=== PATIENT | female | born 1975 | race Caucasian/White ===

== ENCOUNTER 2017-03-18 06:55 | Emergency (ER) | payer OTHER ==
[2017-03-18 07:03] VITALS: PULSE 75; RESP 16; TEMP 97.9
[2017-03-18] MEDS ORDERED: PENICILLIN V POTASSIUM 250 MG TAB PO STA (07:12)
[2017-03-18] MEDS ORDERED: Acetaminophen-Codeine 300-30mg TAB PO STA (07:12)
[2017-03-18] MEDS ORDERED: PENICILLIN VK 500MG STARTER 4 TAB BTL PO STA (07:12)
[2017-03-18] MEDS ORDERED: DEXAMETHASONE SOD PHOSPHATE 10 MG/ML 1 ML VIAL IM STA (07:13)
--- NOTE | 2017-03-18 07:18 | ED ---
General Adult HPI - General Chief complaint: ENT Stated complaint: facial swelling, congestion Time Seen by Provider: 03/18/17 07:00 Source: patient, RN notes reviewed, old records reviewed Mode of arrival: ambulatory Limitations: no limitations - History of Present Illness Initial comments: This is a 41-year-old female to the ER for evaluation of dental disease. Face pain, tooth pain. Patient has jaw pain. Severe. No fevers. No difficulty swallowing. Does admit to increased and worsening and smelling breath. Patient has no modifying factors at home, not currently on antibiotics - Related Data Home Medications Medication Instructions Recorded Confirmed Ibuprofen [Advil] 600 mg PO Q6HR PRN 11/05/14 06/02/16 ALPRAZolam [Xanax] 1 mg PO HS 06/02/16 06/02/16 HYDROcodone/APAP 10-325MG [[address] 1 tab PO DAILY PRN 06/02/16 06/02/16 10-325] Previous Rx's Medication Instructions Recorded Ciprofloxacin HCl [Cipro] 500 mg PO Q12HR #14 tablet 06/02/16 Phenazopyridine [Pyridium] 100 mg PO TID #6 tablet 06/02/16 HYDROcodone/APAP 5-325MG [[address] 1 tab PO Q6HR PRN #30 tab 03/18/17 5-325] Penicillin V Potassium [Pen Vee K] 500 mg PO QID #40 tablet 03/18/17 Allergies Allergy/AdvReac Type Severity Reaction Status Date / Time No Known Allergies Allergy Verified 03/18/17 07:03 Review of Systems ROS Statement: Those systems with pertinent positive or pertinent negative responses have been documented in the HPI. ROS Other: All systems not noted in ROS Statement are negative. Past Medical History Past Medical History: Asthma, GERD/Reflux Additional Past Medical History / Comment(s): anemia, murmur, asthma as child, migraines History of Any Multi-Drug Resistant Organisms: None Reported Past Surgical History: Appendectomy, Section, Tubal Ligation Past Anesthesia/Blood Transfusion Reactions: No Reported Reaction Additional Past Anesthesia/Blood Transfusion Reaction / Comment(s): pt stated aa seemed to wear off to early during sx they had to give her more Past Psychological History: No Psychological Hx Reported Smoking Status: Current every day smoker Past Alcohol Use History: None Reported Past Drug Use History: None Reported - Past Family History Father Family Medical History: Unable to Obtain Mother Family Medical History: Cancer Additional Family Medical History / Comment(s): at age 52 of ovarian cancer General Exam Limitations: no limitations General appearance: alert, in no apparent distress Head exam: Present: atraumatic, normocephalic, normal inspection Eye exam: Present: normal appearance, PERRL, EOMI. Absent: scleral icterus, conjunctival injection, periorbital swelling ENT exam: Present: normal exam, mucous membranes moist Neck exam: Present: normal inspection. Absent: tenderness, meningismus, lymphadenopathy Respiratory exam: Present: normal lung sounds bilaterally. Absent: respiratory distress, wheezes, rales, rhonchi, stridor Cardiovascular Exam: Present: regular rate, normal rhythm, normal heart sounds. Absent: systolic murmur, diastolic murmur, rubs, gallop, clicks GI/Abdominal exam: Present: soft, normal bowel sounds. Absent: distended, tenderness, guarding, rebound, rigid Extremities exam: Present: normal inspection, full ROM, normal capillary refill. Absent: tenderness, pedal edema, joint swelling, calf tenderness Back exam: Present: normal inspection Neurological exam: Present: alert, oriented X3, CN II-XII intact Psychiatric exam: Present: normal affect, normal mood Skin exam: Present: warm, dry, intact, normal color. Absent: rash Course Vital Signs 03/18/17 06:57 Temperature 97.9 F Pulse Rate 75 Respiratory 16 Rate O2 Sat by Pulse 100 Oximetry Medical Decision Making - Medical Decision Making 41 female in the ER for evaluation of dental disease. Positive dental abscess and exam adrenal abscess found. Patient can be discharged home with antibiotics and pain control Disposition Clinical Impression: Dental abscess, Dental caries Disposition: HOME SELF-CARE Condition: Good Instructions: Dental Abscess (ED) Prescriptions: HYDROcodone/APAP 5-325MG [[address] 5-325] 1 tab PO Q6HR PRN #30 tab PRN Reason: Pain Penicillin V Potassium [Pen Vee K] 500 mg PO QID #40 tablet Referrals: José Antonio Samayoa DO [Primary Care Provider] - 1-2 days
--- NOTE | 2017-03-21 04:43 | CDI ---
Documentation Clarification OP Dear Rosales CARLOS, , Please add addendum for HPI, Physical examination and MDM. Thank you, Ana. Upholstery Technician. If you have any questions please contact corporate quality assurance manager at [phone]. [facility]
== END 2017-03-18 07:40 | disposition home or self-care (01) ==
LOC: EC 06:55
DX: K04.7 Periapical abscess without sinus (principal); K02.9 Dental caries, unspecified; F17.200 Nicotine dependence, unspecified, uncomplicated; Z79.899 Other long term (current) drug therapy
CPT/HCPCS: 99283; 96372; J1100

== ENCOUNTER → 2021-05-14 | Outpatient (CLI) | payer OTHER ==
[2021-05-15 04:36] LABS: Rheumatoid Factor, Qnt <10 IU/mL (0-15)
[2021-05-15 06:08] LABS: Anti-DNA, DS unit <1.0 IU/mL; Anti-Smith Ab Interp NEGATIVE (NEGATIVE); Cyclic Citrull Pep IgG Unit <0.5 U/mL; Cyclic Citrullinated Pep IgG NEGATIVE (NEGATIVE); DNA Double-Stranded NEGATIVE (NEGATIVE); JO-1 IgG Antibody <0.2 AI; Scleroderma SC-70 Ab <0.2 AI
== END | disposition home or self-care (01) ==
LOC: LABWHC1 16:36
PROVIDERS: ATTEND Psychiatry & Neurology Pain Medicine
DX: M25.50 Pain in unspecified joint (principal)
CPT/HCPCS: 36415; 83516; 85652; 86038; 86140; 86200; 86225; 86235; 86431